=== PATIENT | male | born 1970 | race Caucasian/White ===

== ENCOUNTER 2020-05-07 00:28 | Inpatient (IN) ==
[2020-05-07] MEDS ORDERED: Naloxone 0.4 MG/ML INJ IVP PRN (02:22)
[2020-05-07] MEDS ORDERED: Ondansetron 4 MG/2 ML VIAL IVP PRN (02:22)
[2020-05-07] MEDS ORDERED: Acetaminophen 325 MG TABLET PO PRN (02:22)
[2020-05-07] MEDS ORDERED: Furosemide 40 MG/4 ML VIAL IVP ONE (02:34)
[2020-05-07 02:58] LABS: Adenovirus Not Detected (Not Detect); Bordetella Pertussis Not Detected (Not Detect); Chlamydophila pneumoniae Not Detected (Not Detect); Coronavirus 229E Not Detected (Not Detect); Coronavirus HKU1 Not Detected (Not Detect); Coronavirus NL63 Not Detected (Not Detect); Coronavirus OC43 Not Detected (Not Detect); Human Metapneumovirus Not Detected (Not Detect); Human Rhinovirus/Enterovirus Not Detected (Not Detect); Influenza A Subtype 2009 H1 Not Detected (Not Detect); Influenza B Not Detected (Not Detect); Mycoplasma pneumoniae Not Detected (Not Detect); Parainfluenza Virus 1 Not Detected (Not Detect); Parainfluenza Virus 2 Not Detected (Not Detect); Parainfluenza Virus 3 Not Detected (Not Detect); Parainfluenza Virus 4 Not Detected (Not Detect); Respiratory Syncytial Virus Not Detected (Not Detect); SARS-CoV-2 Not Detected (Not Detect)
[2020-05-07] MEDS ORDERED: Vancomycin 2,000 MG/520 ML IV.SOLN IVPB ONE (04:00)
[2020-05-07] MEDS ORDERED: methylPREDNISolone 125 MG/2 ML VIAL IVP ONE (04:07)
[2020-05-07] MEDS ORDERED: Cefepime HCl 1,000 MG in Water for inj. (sterile) 10 ML IVP SCH (06:00)
[2020-05-07 06:10] LABS: Basophils % 0.1 %; Hematocrit 40.2 % (37.5-50.1); Hemoglobin 13.2 g/dL (12.9-16.9); Immature Granulocytes % 0.9 % (0-4); Lymphocytes # 1.7 K/mcL (0.6-4.6); Lymphocytes % 10.3 %; Mean Corpuscular HGB Conc 32.8 g/dL (31.6-35.5); Mean Corpuscular Hemoglobin 31.5 pg (28.0-33.3); Mean Corpuscular Volume 95.9 fL (83.0-100.0); Mean Platelet Volume 10.5 fL (9.4-12.4); Monocytes # 1.4 K/mcL (0.0-1.3); Monocytes % 8.6 %; Neutrophils # 13.1 K/mcL (1.6-8.9); Platelet Count 184 K/mcL (140-400); Red Blood Count 4.19 M/mcL (4.19-5.50); Segmented Neutrophils % 80.1 %; White Blood Count 16.4 K/mcL (4.3-11.1)
[2020-05-07 06:18] LABS: INR 1.2; Prothrombin Time 13.5 Seconds (9.4-12.1)
[2020-05-07] MEDS: Cefepime HCl 2,000 MG in Water for inj. (sterile) 20 ML IVP SCH ×3 (06:19→21:12)
[2020-05-07] MEDS: Azithromycin 500 MG in 0.9 % Sodium Chloride 250 ML IVPB SCH (06:20)
[2020-05-07 06:32] LABS: Alanine Aminotransferase 9 Units/L (7-52); Alkaline Phosphatase 57 Units/L (34-104); Aspartate Amino Transferase 11 Units/L (13-39); BUN/Creatinine Ratio 10 (6-26); Bilirubin,Total 0.6 mg/dL (0.3-1.0); Blood Urea Nitrogen 9 mg/dL (6-20); Calcium 8.5 mg/dL (8.6-10.3); Carbon Dioxide 24 mEq/L (23-29); Chloride 107 mEq/L (98-107); Creatine Kinase 54 Units/L (30-223); Glucose 110 mg/dL (70-105); Magnesium 1.6 mg/dL (1.6-2.6); Osmolality,Calculated 283 (280-300); Potassium 3.8 mEq/L (3.5-5.1); Sodium 137 mEq/L (136-145); Troponin I < 0.03 ng/mL (< 0.04); eGFR For African Americans > 60 (> 60); eGFR For Non-African Americans > 60 (> 60)
[2020-05-07] MEDS ORDERED: Isovue-370 500 ML BOTTLE IVP ONE (06:47)
[2020-05-07] MEDS ORDERED: Gadolinium Contrast Agent (WT Based) IV PRN ×2 (07:38→08:12)
[2020-05-07] MEDS ORDERED: cloZAPine 100 MG TABLET PO SCH (09:00)
[2020-05-07 09:07] LABS: C-Reactive Protein 258 mg/L (Less than 10)
[2020-05-07] MEDS: Valproic Acid 250 MG CAPSULE PO SCH ×2 (09:55→21:11)
[2020-05-07] MEDS: Cholecalciferol (D-3) 1,000 UNIT (25MCG) TABLET PO SCH (09:55)
[2020-05-07] MEDS: Fluorometholone OPTH 5 ML BOTTLE BOTH EYES SCH ×4 (09:56→21:21)
[2020-05-07 10:50] LABS: Complement C3 121 mg/dL (87-200)
[2020-05-07 12:32] LABS: ABG Base Excess 1 mEq/L (-2 to 3); ABG HCO3 24 mEq/L (21-27); ABG Oxygen Saturation 96 % (95-98); ABG PCO2 33 mmHg (35-45); ABG PH 7.47 pH Units (7.32-7.45); ABG PO2 73 mmHg (85-104); ABG TCO2 25 mEq/L (20-26)
[2020-05-07 14:52] LABS: Appearance,CSF Clear (Clear)
[2020-05-07 14:54] LABS: Glucose,CSF 71 mg/dL (40-70); Total Protein,CSF 49 mg/dL (15-45)
[2020-05-07 14:55] LABS: Red Blood Cell,CSF < 2000 RBC/mcL
[2020-05-07] MEDS: Vancomycin 1,500 MG/265 ML IV.SOLN IVPB SCH (15:04)
[2020-05-07 15:08] LABS: Basophils,CSF 0 %; Eosinophils,CSF 0 %; Lymphocytes,CSF 0 %; Monocytes,CSF 0 %
[2020-05-07] MEDS ORDERED: IVIG (wt based) Privigen 5 GM/50 ML INFUS..BTL IVC ONE (15:20)
[2020-05-07 15:41] LABS: Thyroid Stimulating Hormone 0.92 mcIU/mL (0.340-5.600)
[2020-05-07 16:02] LABS: Folate 8.1 ng/mL (3.0-16.0)
[2020-05-07] MEDS ORDERED: Immune Glob, Gamma (Gammagard) 20 GM/200 ML INFUS..BTL IVC ONE ×2 (17:00)
[2020-05-07] MEDS ORDERED: Immune Glob, Gamma (Gammagard) 10 GM/100 ML INFUS..BTL IVC ONE (17:00)
[2020-05-07] MEDS ORDERED: Water for inj. (sterile) 10 ML ONE (21:03)
[2020-05-07] MEDS: cloZAPine 100 MG TABLET PO SCH (21:11)
[2020-05-07] MEDS: Valproic Acid Oral Soln 250 MG/5 ML UDC PO SCH (21:33)
[2020-05-08 04:38] LABS: ABG Base Excess 1 mEq/L (-2 to 3); ABG HCO3 26 mEq/L (21-27); ABG Oxygen Saturation 94 % (95-98); ABG PCO2 39 mmHg (35-45); ABG PH 7.43 pH Units (7.32-7.45); ABG PO2 68 mmHg (85-104); ABG TCO2 27 mEq/L (20-26); Blood Gas Modality 9LPM
[2020-05-08] MEDS: Levalbuterol Neb 1.25 MG/3 ML IH SCH ×5 (04:46→22:15)
[2020-05-08] MEDS: Vancomycin 1,500 MG/265 ML IV.SOLN IVPB SCH ×2 (04:52→16:15)
[2020-05-08] MEDS: Cefepime HCl 2,000 MG in Water for inj. (sterile) 20 ML IVP SCH ×4 (05:42→23:14)
[2020-05-08] MEDS: Azithromycin 500 MG in 0.9 % Sodium Chloride 250 ML IVPB SCH (05:43)
[2020-05-08 07:53] LABS: Hematocrit 42.1 % (37.5-50.1); Hemoglobin 13.5 g/dL (12.9-16.9); Mean Corpuscular HGB Conc 32.1 g/dL (31.6-35.5); Mean Corpuscular Hemoglobin 31.5 pg (28.0-33.3); Mean Corpuscular Volume 98.1 fL (83.0-100.0); Mean Platelet Volume 11.1 fL (9.4-12.4); Platelet Count 210 K/mcL (140-400); Red Blood Count 4.29 M/mcL (4.19-5.50); Red Cell Distribution Width 13.8 % (11.5-14.5); White Blood Count 15.9 K/mcL (4.3-11.1)
[2020-05-08 08:02] LABS: BUN/Creatinine Ratio 24 (6-26); Blood Urea Nitrogen 19 mg/dL (6-20); Calcium 9.2 mg/dL (8.6-10.3); Carbon Dioxide 26 mEq/L (23-29); Chloride 105 mEq/L (98-107); Glucose 119 mg/dL (70-105); Magnesium 2.1 mg/dL (1.6-2.6); Osmolality,Calculated 289 (280-300); Potassium 4.1 mEq/L (3.5-5.1); Sodium 138 mEq/L (136-145); eGFR For African Americans > 60 (> 60); eGFR For Non-African Americans > 60 (> 60)
[2020-05-08] MEDS ORDERED: Cyanocobalamin (B-12) 1,000 MCG/ML VIAL IM ONE (08:04)
[2020-05-08] MEDS: Cholecalciferol (D-3) 1,000 UNIT (25MCG) TABLET PO SCH (08:18)
[2020-05-08] MEDS: Valproic Acid Oral Soln 250 MG/5 ML UDC PO SCH ×2 (08:18→20:16)
[2020-05-08] MEDS: Fluorometholone OPTH 5 ML BOTTLE BOTH EYES SCH ×5 (08:26→20:48)
[2020-05-08] MEDS ORDERED: Vancomycin 1,750 MG/517.5 ML IV.SOLN IVPB SCH (16:00)
[2020-05-08] MEDS: cloZAPine 100 MG TABLET PO SCH (20:16)
[2020-05-09 01:51] LABS: Hematocrit 38.8 % (37.5-50.1); Hemoglobin 12.8 g/dL (12.9-16.9); Mean Corpuscular Hemoglobin 31.7 pg (28.0-33.3); Mean Platelet Volume 10.7 fL (9.4-12.4); Platelet Count 250 K/mcL (140-400); Red Blood Count 4.04 M/mcL (4.19-5.50); Red Cell Distribution Width 14.1 % (11.5-14.5); White Blood Count 11.4 K/mcL (4.3-11.1)
[2020-05-09 02:12] LABS: BUN/Creatinine Ratio 26 (6-26); Blood Urea Nitrogen 21 mg/dL (6-20); Calcium 8.7 mg/dL (8.6-10.3); Carbon Dioxide 26 mEq/L (23-29); Chloride 107 mEq/L (98-107); Glucose 85 mg/dL (70-105); Osmolality,Calculated 292 (280-300); Potassium 3.6 mEq/L (3.5-5.1); Sodium 140 mEq/L (136-145); eGFR For African Americans > 60 (> 60); eGFR For Non-African Americans > 60 (> 60)
[2020-05-09] MEDS: Levalbuterol Neb 1.25 MG/3 ML IH SCH ×4 (03:59→22:52)
[2020-05-09] MEDS ORDERED: Vancomycin 1,750 MG/517.5 ML IV.SOLN IVPB SCH (04:00)
[2020-05-09] MEDS: Cefepime HCl 2,000 MG in Water for inj. (sterile) 20 ML IVP SCH ×3 (06:54→20:59)
[2020-05-09] MEDS: Cholecalciferol (D-3) 1,000 UNIT (25MCG) TABLET PO SCH (08:57)
[2020-05-09] MEDS: Valproic Acid Oral Soln 250 MG/5 ML UDC PO SCH ×2 (08:57→20:59)
[2020-05-09] MEDS: Fluorometholone OPTH 5 ML BOTTLE BOTH EYES SCH ×4 (11:59→20:59)
[2020-05-09] MEDS ORDERED: Cyanocobalamin (B-12) 1,000 MCG/ML VIAL IM ONE (12:14)
[2020-05-09] MEDS: cloZAPine 100 MG TABLET PO SCH (20:58)
[2020-05-09] MEDS: LOXAPINE PO SCH (20:59)
[2020-05-10] MEDS: Levalbuterol Neb 1.25 MG/3 ML IH SCH ×3 (04:05→16:00)
[2020-05-10] MEDS: Cefepime HCl 2,000 MG in Water for inj. (sterile) 20 ML IVP SCH ×3 (06:07→20:16)
[2020-05-10 07:05] LABS: Hematocrit 41.2 % (37.5-50.1); Hemoglobin 13.4 g/dL (12.9-16.9); Mean Corpuscular HGB Conc 32.5 g/dL (31.6-35.5); Mean Corpuscular Hemoglobin 30.7 pg (28.0-33.3); Mean Corpuscular Volume 94.3 fL (83.0-100.0); Mean Platelet Volume 10.2 fL (9.4-12.4); Platelet Count 274 K/mcL (140-400); Red Blood Count 4.37 M/mcL (4.19-5.50); Red Cell Distribution Width 14.2 % (11.5-14.5); White Blood Count 6.5 K/mcL (4.3-11.1)
[2020-05-10 07:24] LABS: Alanine Aminotransferase 28 Units/L (7-52); Albumin 2.8 g/dL (3.5-5.7); Albumin/Globulin Ratio 0.7 (1.1-2.2); Alkaline Phosphatase 57 Units/L (34-104); Aspartate Amino Transferase 26 Units/L (13-39); BUN/Creatinine Ratio 25 (6-26); Bilirubin,Direct 0.1 mg/dL (0.0-0.2); Bilirubin,Indirect 0.3 mg/dL (0.0-1.0); Bilirubin,Total 0.4 mg/dL (0.3-1.0); Blood Urea Nitrogen 20 mg/dL (6-20); Calcium 8.6 mg/dL (8.6-10.3); Carbon Dioxide 27 mEq/L (23-29); Chloride 105 mEq/L (98-107); Globulin 3.9 g/dL (2.4-3.5); Glucose 87 mg/dL (70-105); Magnesium 1.9 mg/dL (1.6-2.6); Osmolality,Calculated 290 (280-300); Potassium 3.8 mEq/L (3.5-5.1); Sodium 139 mEq/L (136-145); Total Protein 6.7 g/dL (6.4-8.9); eGFR For African Americans > 60 (> 60); eGFR For Non-African Americans > 60 (> 60)
[2020-05-10] MEDS: Cholecalciferol (D-3) 1,000 UNIT (25MCG) TABLET PO SCH (09:00)
[2020-05-10] MEDS ORDERED: Cyanocobalamin (B-12) 1,000 MCG TABLET PO SCH (09:00)
[2020-05-10] MEDS: Valproic Acid Oral Soln 250 MG/5 ML UDC PO SCH ×2 (09:00→20:09)
[2020-05-10] MEDS: Fluorometholone OPTH 5 ML BOTTLE BOTH EYES SCH ×4 (09:02→20:18)
[2020-05-10] MEDS: LOXAPINE PO SCH (09:02)
[2020-05-10 10:56] LABS: ANA IgG by ELISA NONE DETECTED (None Detected)
[2020-05-10 15:59] LABS: Serine Protease-3 Antibody 1 AU/mL (0-19)
[2020-05-10 17:57] LABS: Adenovirus Not Detected (Not Detect); Coronavirus 229E Not Detected (Not Detect); Coronavirus HKU1 Not Detected (Not Detect); Coronavirus NL63 Not Detected (Not Detect); Coronavirus OC43 Not Detected (Not Detect)
[2020-05-10 17:58] LABS: Bordetella Pertussis Not Detected (Not Detect); Chlamydophila pneumoniae Not Detected (Not Detect); Human Metapneumovirus Not Detected (Not Detect); Human Rhinovirus/Enterovirus Not Detected (Not Detect); Influenza A Subtype 2009 H1 Not Detected (Not Detect); Influenza B Not Detected (Not Detect); Mycoplasma pneumoniae Not Detected (Not Detect); Parainfluenza Virus 1 Not Detected (Not Detect); Parainfluenza Virus 2 Not Detected (Not Detect); Parainfluenza Virus 3 Not Detected (Not Detect); Parainfluenza Virus 4 Not Detected (Not Detect); Respiratory Syncytial Virus Not Detected (Not Detect); SARS-CoV-2 Not Detected (Not Detect)
[2020-05-10 19:27] VITALS: BP 143/93
[2020-05-10] MEDS: cloZAPine 100 MG TABLET PO SCH (20:10)
== END 2020-05-10 20:28 | disposition other institution (70) | DRG 871 ==
LOC: 2NNU → SUATTDRO 01:51 → 2NNU 01:51 → INTOOBSV 01:51 → SUATTDRO 13:05 → 3ANU 05-09 17:17
PROVIDERS: ADMIT Family Medicine; ATTEND Family Medicine

== ENCOUNTER 2021-08-09 18:16 | Observation (INO) ==
[2021-08-09] MEDS ORDERED: Isovue-370 500 ML BOTTLE IVP ONE (19:00)
[2021-08-09] MEDS ORDERED: Ipratropium/Albuterol Neb 3 ML IH ONE (22:47)
[2021-08-09 23:33] LABS: VBG HCO3 30 mEq/L (21-27); VBG PCO2 45 mmHg (41-51); VBG PH 7.43 pH Units (7.32-7.42); VBG PO2 76 mmHg (25-50)
[2021-08-09 23:56] LABS: Basophils % 0.2 %; Hematocrit 40.5 % (37.5-50.1); Hemoglobin 12.9 g/dL (12.9-16.9); Immature Granulocytes % 0.7 % (0-4); Lymphocytes # 2.5 K/mcL (0.6-4.6); Lymphocytes % 22.5 %; Mean Corpuscular HGB Conc 31.9 g/dL (31.6-35.5); Mean Corpuscular Hemoglobin 29.2 pg (28.0-33.3); Mean Corpuscular Volume 91.6 fL (83.0-100.0); Mean Platelet Volume 10.1 fL (9.4-12.4); Monocytes # 1.2 K/mcL (0.0-1.3); Monocytes % 10.7 %; Neutrophils # 7.4 K/mcL (1.6-8.9); Platelet Count 518 K/mcL (140-400); Red Blood Count 4.42 M/mcL (4.19-5.50); Red Cell Distribution Width 14.9 % (11.5-14.5); Segmented Neutrophils % 65.9 %; White Blood Count 11.2 K/mcL (4.3-11.1)
[2021-08-10 00:15] LABS: BUN/Creatinine Ratio 20 (6-26); Blood Urea Nitrogen 20 mg/dL (6-20); Carbon Dioxide 28 mEq/L (23-29); Chloride 99 mEq/L (98-107); Glucose 109 mg/dL (70-105); Osmolality,Calculated 285 (280-300); Potassium 4.2 mEq/L (3.5-5.1); Sodium 136 mEq/L (136-145); eGFR For African Americans > 60 (> 60); eGFR For Non-African Americans > 60 (> 60)
[2021-08-10] MEDS ORDERED: Melatonin 3 MG TABLET PO PRN (00:43)
[2021-08-10] MEDS ORDERED: Ondansetron ODT 4 MG TAB.RAPDIS SL PRN (00:43)
[2021-08-10] MEDS ORDERED: Acetaminophen 325 MG TABLET PO PRN (00:43)
[2021-08-10] MEDS ORDERED: Naloxone 0.4 MG/ML INJ IVP PRN (00:43)
[2021-08-10] MEDS ORDERED: Perflutren Lipid Microsphere 1.3 ML in 0.9 % Sodium Chloride 8.7 ML IVP PRN (01:13)
[2021-08-10 02:39] LABS: Basophils % 0.3 %; Hematocrit 37.9 % (37.5-50.1); Hemoglobin 12.4 g/dL (12.9-16.9); Immature Granulocytes % 1.1 % (0-4); Lymphocytes # 2.6 K/mcL (0.6-4.6); Lymphocytes % 24.7 %; Mean Corpuscular HGB Conc 32.7 g/dL (31.6-35.5); Mean Corpuscular Hemoglobin 29.5 pg (28.0-33.3); Monocytes # 1.1 K/mcL (0.0-1.3); Monocytes % 10.4 %; Neutrophils # 6.6 K/mcL (1.6-8.9); Platelet Count 486 K/mcL (140-400); Red Blood Count 4.21 M/mcL (4.19-5.50); Red Cell Distribution Width 14.9 % (11.5-14.5); Segmented Neutrophils % 63.5 %; White Blood Count 10.5 K/mcL (4.3-11.1)
[2021-08-10 02:46] LABS: INR 1.1; Prothrombin Time 12.6 Seconds (9.4-12.1)
[2021-08-10 02:47] LABS: BUN/Creatinine Ratio 19 (6-26); Blood Urea Nitrogen 18 mg/dL (6-20); Calcium 8.7 mg/dL (8.6-10.3); Carbon Dioxide 27 mEq/L (23-29); Chloride 100 mEq/L (98-107); Glucose 100 mg/dL (70-105); Magnesium 2.3 mg/dL (1.6-2.6); Osmolality,Calculated 282 (280-300); Potassium 4.5 mEq/L (3.5-5.1); Sodium 135 mEq/L (136-145); eGFR For African Americans > 60 (> 60); eGFR For Non-African Americans > 60 (> 60)
[2021-08-10] MEDS: Ipratropium/Albuterol Neb 3 ML IH SCH ×2 (03:57→08:20)
[2021-08-10] MEDS ORDERED: cloZAPine 100 MG TABLET PO SCH ×2 (08:00→21:00)
[2021-08-10] MEDS ORDERED: Valproic Acid 250 MG CAPSULE PO SCH (09:00)
[2021-08-10] MEDS ORDERED: Colchicine 0.6 MG TABLET PO SCH (09:00)
[2021-08-10] MEDS ORDERED: Azithromycin 250 MG TABLET PO SCH (09:00)
[2021-08-10] MEDS ORDERED: Aspirin 325 MG TABLET PO SCH (09:00)
[2021-08-10] MEDS ORDERED: Sennosides/Docusate Sodium TABLET PO SCH (09:00)
[2021-08-10] MEDS ORDERED: predniSONE 20 MG TABLET PO SCH (09:00)
[2021-08-10] MEDS ORDERED: Nicotine 21 MG PATCH.TD24 TD SCH (09:00)
[2021-08-10 10:37] LABS: Adenovirus Not Detected (Not Detect); Bordetella Pertussis Not Detected (Not Detect); Chlamydophila pneumoniae Not Detected (Not Detect); Coronavirus 229E Not Detected (Not Detect); Coronavirus HKU1 Not Detected (Not Detect); Coronavirus NL63 Not Detected (Not Detect); Coronavirus OC43 Not Detected (Not Detect); Human Metapneumovirus Not Detected (Not Detect); Human Rhinovirus/Enterovirus Not Detected (Not Detect); Influenza A Subtype 2009 H1 Not Detected (Not Detect); Influenza B Not Detected (Not Detect); Mycoplasma pneumoniae Not Detected (Not Detect); Parainfluenza Virus 1 Not Detected (Not Detect); Parainfluenza Virus 2 Not Detected (Not Detect); Parainfluenza Virus 3 Not Detected (Not Detect); Parainfluenza Virus 4 Not Detected (Not Detect); Respiratory Syncytial Virus Not Detected (Not Detect); SARS-CoV-2 Not Detected (Not Detect)
[2021-08-10 11:22] VITALS: BP 124/82; PULSE 100; TEMP 97.9; O2SAT 92
== END 2021-08-10 15:10 | disposition other institution (70) ==
LOC: 3BNU 18:16 → EMEROOARM 18:16 → SUATTDRO 23:36 → 3BNU 23:50
PROVIDERS: ADMIT Internal Medicine; ATTEND Internal Medicine